=== PATIENT | male | born 1970 | race Caucasian/White ===

== ENCOUNTER 2017-12-07 10:08 | Emergency (ER) | payer MEDICAID, SELFPAY ==
[~2017-12-07] VITALS: Ht 198.1 cm; Wt 102.0 kg
[2017-12-07 10:11] VITALS: BP 117/36
[2017-12-07] MEDS ORDERED: ACETAMINOPHEN 500 MG TABLET ONE (10:26)
[2017-12-07] MEDS ORDERED: ACETAMINOPHEN 500 MG TABLET PO ONE (10:30)
[2017-12-07] MEDS ORDERED: DIPH,PERTUSS(ACELL),TET VAC/PF 0.5 ML IM-VACC ONE ×2 (10:30→10:34)
[2017-12-07] MEDS ORDERED: BACITRACIN ZINC OINT 500U/GM, 0.9 GM ONE (10:33)
== END 2017-12-07 11:35 | disposition home or self-care (01) ==
LOC: ED 10:15
DX: S90.31XA Contusion of right foot, initial encounter (principal); X58.XXXA Exposure to other specified factors, initial encounter; Y93.01 Activity, walking, marching and hiking; Y92.89 Other specified places as the place of occurrence of the external cause; Y99.8 Other external cause status
CPT/HCPCS: 90471; 90715; 99284

== ENCOUNTER 2017-12-17 19:52 | Emergency (ER) | payer MEDICAID ==
[~2017-12-17] VITALS: Ht 195.6 cm; Wt 104.3 kg
[2017-12-17 21:04] VITALS: BP 134/88
[2017-12-17] MEDS ORDERED: METOPROLOL TARTRATE 50 MG TABLET ONE (21:58)
[2017-12-17] MEDS ORDERED: METOPROLOL TARTRATE 50 MG TABLET PO ONE (22:00)
== END 2017-12-17 22:04 | disposition left against medical advice (07) ==
LOC: ED 21:58
DX: M79.672 Pain in left foot (principal); M79.671 Pain in right foot; I48.91 Unspecified atrial fibrillation; E11.9 Type 2 diabetes mellitus without complications; I25.2 Old myocardial infarction
CPT/HCPCS: 93005; 99283

== ENCOUNTER 2017-12-24 05:33 | Emergency (ER) | payer MEDICAID ==
[~2017-12-24] VITALS: Ht 195.6 cm; Wt 100.0 kg
[2017-12-24 05:35] VITALS: BP 138/81
== END 2017-12-24 06:13 | disposition left against medical advice (07) ==
LOC: ED 06:07
DX: M79.671 Pain in right foot (principal); M79.672 Pain in left foot; Z53.21 Procedure and treatment not carried out due to patient leaving prior to being seen by health care provider

== ENCOUNTER 2017-12-30 05:50 | Emergency (ER) | payer MEDICAID ==
[~2017-12-30] VITALS: Ht 198.1 cm; Wt 91.0 kg
[2017-12-30 05:50] VITALS: BP 128/83
[2017-12-30] MEDS ORDERED: IBUPROFEN 200 MG TABLET PO ONE (06:00)
[2017-12-30] MEDS ORDERED: IBUPROFEN 200 MG TABLET ONE (06:07)
== END 2017-12-30 06:15 | disposition home or self-care (01) ==
LOC: ED 06:14
DX: M25.572 Pain in left ankle and joints of left foot (principal); M25.571 Pain in right ankle and joints of right foot; M79.672 Pain in left foot; M79.671 Pain in right foot; F10.10 Alcohol abuse, uncomplicated; F15.10 Other stimulant abuse, uncomplicated; Z72.9 Problem related to lifestyle, unspecified; Z91.14 Patient's other noncompliance with medication regimen; F17.200 Nicotine dependence, unspecified, uncomplicated; Z60.9 Problem related to social environment, unspecified; Z59.0 Homelessness
CPT/HCPCS: 99283

== ENCOUNTER 2017-12-30 11:49 | Emergency (ER) | payer MEDICAID ==
[~2017-12-30] VITALS: Ht 198.1 cm; Wt 100.0 kg
[2017-12-30 11:51] VITALS: BP 132/69
[2017-12-30] MEDS ORDERED: ACETAMINOPHEN 325 MG TABLET PO ONE (12:30)
== END 2017-12-30 12:29 | disposition left against medical advice (07) ==
LOC: ED 12:23
DX: F15.10 Other stimulant abuse, uncomplicated (principal); F17.200 Nicotine dependence, unspecified, uncomplicated; Z59.0 Homelessness
CPT/HCPCS: 99283

== ENCOUNTER 2018-01-06 19:43 | Emergency (ER) | payer MEDICAID, OTHER ==
[~2018-01-06] VITALS: Ht 200.7 cm; Wt 100.0 kg
[2018-01-06] MEDS ORDERED: DILTIAZEM 5 MG/ML, 5ML IV ONE (20:30)
[2018-01-06 20:58] LABS: BASOPHILS # (AUTO) 0.04 x10^3/uL (0-0.1); BASOPHILS % (AUTO) 1 % (0-1); EOSINOPHILS # (AUTO) 0.19 x10^3/uL (0-0.4); EOSINOPHILS % (AUTO) 3 % (1-7); LYMPHOCYTES # (AUTO) 3.08 x10^3/uL (1-3.4); LYMPHOCYTES % (AUTO) 46 % (22-44); MD NO; MEAN CORPUSCULAR HEMOGLOBIN 30.9 pg (27.5-34.5); MEAN CORPUSCULAR HGB CONC 33.3 g/dL (33.2-36.2); MEAN CORPUSCULAR VOLUME 92.8 fL (81-97); MEAN PLATELET VOLUME 8.2 fL (7.4-10.4); MONOCYTES # (AUTO) 0.81 x10^3/uL (0.2-0.8); MONOCYTES % (AUTO) 12 % (2-9); NEUTROPHILS # (AUTO) 2.53 x10^3/uL (1.8-6.8); NEUTROPHILS % (AUTO) 38 % (42-75); PLATELET COUNT 286 x10^3/uL (130-400); RED BLOOD COUNT 5.45 x10^6/uL (4.38-5.82); RED CELL DISTRIBUTION WIDTH 13.6 % (9.4-14.8)
[2018-01-06 21:04] LABS: ALBUMIN 3.5 g/dL (3.4-5.0); ANION GAP 4 mmol/L (5-15); CALCIUM 8.7 mg/dL (8.5-10.1); CHLORIDE 109 mmol/L (98-107)
[2018-01-06 21:11] LABS: ALANINE AMINOTRANSFERASE 60 U/L (12-78); ALKALINE PHOSPHATASE 77 U/L (45-117); BILIRUBIN,TOTAL 0.5 mg/dL (0.2-1.0); CREATININE 1.08 mg/dL (0.7-1.3); TOTAL PROTEIN 7.7 g/dL (6.4-8.2); TROPONIN I < 0.015 ng/mL (0.000-0.045)
[2018-01-06] MEDS ORDERED: MORPHINE SULFATE 4 MG/ML, 1ML ONE (21:22)
[2018-01-06] MEDS ORDERED: SODIUM CHLORIDE 0.9% 1,000ML IVBOLUS ONE (21:30)
[2018-01-06] MEDS ORDERED: MORPHINE SULFATE 4 MG/ML, 1ML IVPush PRN (21:30)
[2018-01-06 22:03] VITALS: BP 102/76
== END 2018-01-06 22:03 | disposition home or self-care (01) ==
LOC: ED 19:55
DX: I48.2 Chronic atrial fibrillation (principal); F17.210 Nicotine dependence, cigarettes, uncomplicated
CPT/HCPCS: 36415; 71045; 80053; 84484; 85025; 93005; 96374; 96375; 99285; J7030

== ENCOUNTER → 2018-04-06 | Outpatient (CLI) | payer OTHER | END | disposition home or self-care (01) | LOC: CVU 07:46 | PROVIDERS: ATTEND Internal Medicine Endocrinology, Diabetes & Metabolism | DX: I70.203 Unspecified atherosclerosis of native arteries of extremities, bilateral legs (principal) | CPT/HCPCS: 93922; 93925 ==